=== PATIENT | female | born 1960 | race Caucasian/White ===

== ENCOUNTER 2017-06-04 19:21 | Emergency (ER) | payer OTHER ==
[~2017-06-04] VITALS: Ht 162.6 cm; Wt 89.3 kg
--- NOTE | ~2017-06-04 | CT2 ---
[facility] A Service of [facility] RADIOLOGY TEXT RESULTS PATIENT: LZU PERRY LOCATION: [facility] : 64 UNIT #: [id number] AGE: [address]: Vincent Preciado MD SEX: F ORDER DR: [id number] [facility] [place], [place] [address] [id number] MR#: [id number] Acc #: [id number] NAME: LUZ PERRY : 1960 SEX: F STUDY DATE/TIME: 06/04/2017 22:40 UNIT: [facility] ROOM: STUDY DESCRIPTION: CT Abd and Pelv W Cont Attending Physician: Vincent Preciado M.D. Ordering Physician: Vincent Preciado M.D. Primary Care Physician: Simon Yuen M.D. MEDICAL IMAGING REPORT This report is preliminary unless electronic signature is present EXAM CT abdomen and pelvis with contrast HISTORY Abdominal pain, left-sided flank pain after fall today. COMPARISON CT abdomen and pelvis 05/26/2012 FINDINGS Axial images performed through the abdomen and pelvis following IV contrast. Multiplanar reconstructed images reviewed. This CT exam was performed with one or more of the following radiation dose reduction techniques: Automatic exposure control, adjustment of mA and/or kV according to patient size, and iterative reconstruction. ABDOMEN: Lung bases unremarkable except for right lower lobe granuloma. Liver demonstrates mild fatty infiltration. The gallbladder is surgically absent. Spleen appears normal. Pancreas, kidneys and adrenal glands appear normal. The visualized GI tract unremarkable. The retroperitoneum appears normal. PELVIS: Bladder, uterus and adnexa appear normal. Osseous structures remarkable for mild L5-S1 degenerative disc changes. There is grade I spondylolisthesis L4 on L5 with lyco-ej-rlzoobiy L4-5 spinal stenosis. Bilateral L4-5 facet arthropathy. IMPRESSION 1. No acute intraabdominal or intrapelvic pathology. 2. Moderate L4-5 spinal stenosis due to a combination of anterolisthesis, disc bulging and facet arthropathic change. 3. Mild fatty infiltration of liver. [facility] A Service of [facility] RADIOLOGY TEXT RESULTS PATIENT: LUZ PERRY LOCATION: [facility] : 64 UNIT #: [id number] AGE: [address]: Vincent Preciado MD SEX: F ORDER DR: Dictated by... Jose Roberto Vinson M.D. THIS IS AN ELECTRONICALLY VERIFIED REPORT Jose Roberto Visnon M.D. at 06/05/2017 2:34 PM DUSTIN/ilya TD: 06/05/2017 08:36 JOB #: [id number] MEDICAL IMAGING REPORT Page 1 of 1 COPY
[~2017-06-04 19:21] MED LIST: ALBUTEROL17 GM INH; ASPIRIN PO; DARVOCET-N 1001 TAB PO; DOXYCYCLINE HY100 M1 PO; FLEXERIL10 MG PO; HYDRALAZINE HCL50 MG PO; HYDROCHLOROTHIA25 MG DOB; LORTAB 101 TAB 10/5 PO; MAXALT MLT10 MG/TAB PO; MEDROL DOSEPAK4 MG DOB; MEDROL4 MG/DOSE- PO; OMEPRAZOLE40 MG PO; PHENERGAN PO; PHENERGAN25 M1 PO; ULTRAM PO; VICODIN 5/1 TAB 5/50; VICODIN 5/1 TAB 5/50 PO
[2017-06-04 21:25] LABS: BASOPHIL# 0.1 X10e3 (0-0.3); EOSINOPHIL# 0.5 X10e3 (0-0.7); HEMATOCRIT 38.6 % (35.0-45.0); HEMOGLOBIN 12.7 gm/dL (12.0-16.0); LYMPHOCYTE# 3.6 X10e3 (1.0-3.5); LYMPHOCYTE% 28.2 % (17.0-45.0); MEAN CELL VOLUME 86.7 FL (83-96); MEAN CORPUSCULAR HEMOGLOBIN 28.4 PG (28-34); MEAN CORPUSCULAR HGB CONC 32.8 g/dL (30-36); MEAN PLATELET VOLUME 9.2 FL (6.5-11.5); MONOCYTE# 0.9 X10e3 (0-1.0); MONOCYTE% 6.7 % (3.0-12.0); NEUTROPHIL# 7.7 X10e3 (1.5-7.1); NEUTROPHIL% 60.1 % (40-75); PLATELET COUNT 265 X10e3 (140-420); RED BLOOD COUNT 4.46 X10e (3.90-5.30); WHITE BLOOD COUNT 12.9 X10e3 (4.0-10.5)
[2017-06-04 21:27] LABS: DIFF IND NO
[2017-06-04 21:51] LABS: URINE SOURCE CLEAN CATCH
[2017-06-04 21:53] LABS: ALBUMIN SERUM 3.6 g/dL (3.5-5.0); ALKALINE PHOSPHATASE 72 U/L (32-92); ALT (SGPT) 15 U/L (10-40); AMYLASE 22 U/L (0-46); AST (SGOT) 15 U/L (10-42); BILIRUBIN,TOTAL 0.4 mg/dL (0.2-2.0); BLOOD UREA NITROGEN 16 mg/dL (9-23); CARBON DIOXIDE 27 mmol/L (22-31); CHLORIDE 104 mmol/L (100-111); CREATININE SERUM 0.8 mg/dL (0.6-1.4); GLOM FILT RATE Estimated 83.7 mL/min (>60); GLUCOSE FASTING 144 mg/dL (70-110); LIPASE 30 U/L (22-51); POTASSIUM 3.3 mmol/L (3.5-5.1); PROTEIN TOTAL SERUM 6.7 g/dL (6.0-8.3); SODIUM 141 mmol/L (135-145)
[2017-06-04 21:54] LABS: BILIRUBIN, DIRECT <0.1 mg/dL (0.0-0.2); BILIRUBIN,INDIRECT 0.3 mg/dL (0.0-0.9)
[2017-06-04 21:56] LABS: URINE APPEARANCE CLEAR; URINE BILIRUBIN NEG (NEG); URINE BLOOD NEG (NEG); URINE COLOR YELLOW; URINE GLUCOSE NEG (NEG); URINE KETONE NEG (NEG); URINE LEUKOCYTE ESTERASE 1+ (NEG); URINE NITRATE NEG (NEG); URINE PROTEIN NEG (NEG); URINE SPECIFIC GRAVITY 1.025 (1.003-1.035)
[2017-06-04 21:59] LABS: CULTURE INDICATED? YES; URBCS1 AUWI 0-2 /[HPF] (0-2); URINE BACTERIA AUWI 2+ (NEGATIVE); URINE SQUAMOUS EPITHELIAL CELL OCC /[HPF]
== END 2017-06-04 23:30 | disposition home or self-care (01) ==
LOC: CED 19:21
PROVIDERS: Emergency Medicine
DX: N30.00 Acute cystitis without hematuria (principal); S20.219A Contusion of unspecified front wall of thorax, initial encounter; K21.9 Gastro-esophageal reflux disease without esophagitis; I10 Essential (primary) hypertension; J44.9 Chronic obstructive pulmonary disease, unspecified; F17.200 Nicotine dependence, unspecified, uncomplicated; Z88.6 Allergy status to analgesic agent; X58.XXXA Exposure to other specified factors, initial encounter
CPT/HCPCS: 36415; 74177; 80048; 80076; 81003; 82150; 83690; 85025; 87086; 99284; Q9967